=== PATIENT | female | born 1985 | race Caucasian/White ===

== ENCOUNTER 2019-03-26 16:06 | Emergency (ER) | payer MEDICAID ==
[~2019-03-26] VITALS: Ht 167.6 cm; Wt 74.8 kg
[2019-03-26 16:17] VITALS: BP 140/88
--- NOTE | 2019-03-26 16:18 | NUR ---
ED Nurse Note: Patient walked in to ER from home due to Rt flank pain 01/28. Patient alert and oriented x4 and ambulatory. skin clean and intact. calm and cooperative. no acute distress noted at this time.
[2019-03-26 16:38] LABS: APPEARANCE,URINE CLEAR; BILIRUBIN, URINE NEGATIVE (NEGATIVE); COLOR,URINE PALE YELLOW; GLUCOSE, URINE (UA) NEGATIVE (NEGATIVE); KETONES,URINE NEGATIVE (NEGATIVE); LEUKOCYTE ESTERASE ,URINE NEGATIVE (NEGATIVE); NITRITE,URINE NEGATIVE (NEGATIVE); PH,URINE 6.5 (4.5-8.0); PROTEIN,URINE NEGATIVE (NEGATIVE); UROBILINOGEN,URINE NORMAL MG/DL (0.0-1.0)
--- NOTE | 2019-03-26 16:47 | Emergency Room Report ---
History of Present Illness General Chief Complaint: Back Pain-No Injury Source: Patient Present Illness HPI 33 year old female complaining of intermittent right-sided low back pain x 5 days. Pain is 6-7/10. No relieving/aggravating factors. Denies fall or trauma. States had urinary burning 10 days ago, took antibiotics. Denies urinary burning at this time. Denies fever, blood in urine, vomiting, abdominal pain. Denies numbness, weakness. No bowel/ bladder incontinence. Allergies: Coded Allergies: No Known Allergies (Unverified , 03/26/19) Patient History Past Medical History: none Past Surgical History: none Social History: Denies: smoking, alcohol use, drug use Last Menstrual Period: 03/19/19 Nursing Documentation-[facility] Past Medical History: No Stated History Review of Systems All Other Systems: negative except mentioned in HPI Physical Exam Vital Signs Date Time Temp Pulse Resp B/P (MAP) Pulse Ox O2 Delivery O2 Flow Rate FiO2 03/26/19 16:11 98.2 75 18 140/88 (105) 99 Room Air Sp02 EP Interpretation: reviewed, normal General Appearance: non-toxic Respiratory: chest non-tender, lungs clear, normal breath sounds, speaking full sentences Cardiovascular #1: regular rate, rhythm, no edema Gastrointestinal: normal bowel sounds, non tender, soft, non-distended, no guarding, no rebound Musculoskeletal: back normal, gait/station normal, normal range of motion, non- tender, other - Lumbar: No spinal tenderness, tenderness to the right paravertebral muscles. Neurologic: normal inspection, inside barrel polisher III-XII nml as tested, motor strength/tone normal, normal gait Medical Decision Making PA Attestation This patient was seen under the direct supervision of Dr. Driver who directed all aspects of care and diagnostic interpretation. ER Course ED course HPI: 33 year old female complaining of intermittent right-sided low back pain x 5 days. Pain is 6-7/10. No relieving/aggravating factors. Denies fall or trauma. States had urinary burning 10 days ago, took antibiotics. Denies urinary burning at this time. Denies fever, blood in urine, vomiting, abdominal pain. Denies numbness, weakness. No bowel/ bladder incontinence. Ddx: UTI, urolithiasis, lumbar strain HPI & PE consistent with: Back pain Orders/ Interventions: Urine . UA normal, no evidence of UTI. No red flag back pain symptoms. Disposition: Patient stable for discharge home. May take OTC acetaminophen or ibuprofen for pain Advised trial of moist heat (warm compress) to back, use for 15 minutes, 4 times a day, continue normal physical activities as tolerated. Advised light stretches as tolerated. Avoid heavy lifting and strenuous exercise until better. Advised to avoid prolonged laying down, sitting, or standing, get up every so often to stretch. Followup with PCP in 2 days or return to ER if worsening symptoms, new symptoms or sudden change in condition. Please note that this Emergency Department Report was dictated using [employer] technology software, occasionally this can lead to erroneous entry secondary to interpretation by the dictation equipment. Laboratory Tests Test 03/26/19 16:20 Urine Color Pale yellow Urine Appearance Clear Urine pH 6.5 (4.5-8.0) Urine Specific [place] 1.015 (1.005-1.035) Urine Protein Negative (NEGATIVE) Urine Glucose (UA) Negative (NEGATIVE) Urine Ketones Negative (NEGATIVE) Urine Blood Negative (NEGATIVE) Urine Nitrite Negative (NEGATIVE) Urine Bilirubin Negative (NEGATIVE) Urine Urobilinogen Normal MG/DL (0.0-1.0) Urine Leukocyte Esterase Negative (NEGATIVE) Urine HCG, Qualitative Negative (NEGATIVE) Last Vital Signs Date Time Temp Pulse Resp B/P (MAP) Pulse Ox O2 Delivery O2 Flow Rate FiO2 03/26/19 16:17 98.2 92 18 140/88 99 Room Air Status: unchanged Disposition: HOME, SELF-CARE Condition: Stable Scripts No Active Prescriptions or Reported Meds Patient Instructions: Back Pain, Adult Additional Instructions: Followup with with PCP in 2 days or return to ED if worsening symptoms, new symptoms or sudden change in condition Supriya Jordan Mar 26, 2019 16:47
[2019-03-26 17:06] VITALS: BP 132/77
--- NOTE | 2019-03-26 17:07 | NUR ---
ED Nurse Note: Pt cleared by health care Provider for discharge. DC instructions/prescription was given and explained to pt and verbalized understanding of teachings. All medical deviecs such as ID band removed. Pt is AAO x4, ambulatory and left with all personal belongings.
== END 2019-03-26 17:10 | disposition home or self-care (01) ==
LOC: EMR 16:52
DX: M54.5 Low back pain (principal)
CPT/HCPCS: 81003; 81025; 99283